=== PATIENT | female | born 1965 | race American Indian/Alaskan Native ===

== ENCOUNTER 2021-07-03 09:05 | Outpatient (CLI) | payer OTHER ==
--- NOTE | 2021-07-03 10:11 | XRay Report ---
XR wrist BILAT 3+V INDICATION: BILATERAL WRIST PAIN. COMPARISON: No relevant prior imaging study available. FINDINGS: Left wrist: No acute skeletal abnormality. Healed distal ulna and radius fractures are noted with scr ew tracks in the distal radius. There is moderate to advanced secondary posttraumatic osteoarthrosis at the radiocarpal articulation. Right wrist: Healed distal radius fracture is noted with screw tracts. There is moderate posttraumati c osteoarthrosis at the radiocarpal articulation. No acute skeletal abnormality. IMPRESSION: 1. 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 Signer Name: Ian Rocha MD Signed: 07/03/2021 10:07 AM Workstation Name: [employer]
== END 2021-07-03 09:06 | disposition home or self-care (01) ==
LOC: XRAY 09:05
PROVIDERS: ATTEND Internal Medicine
DX: M19.032 Primary osteoarthritis, left wrist (principal); M19.031 Primary osteoarthritis, right wrist